=== PATIENT | male | born 1955 | race Caucasian/White ===

== ENCOUNTER 2024-08-05 18:45 | Outpatient (REF) | payer MEDICARE, SELFPAY ==
[2024-08-05 19:57] LABS: Abs Immature Grans 0.05 10^3/uL (0.0-0.06); Absolute Basophil Count 0.05 10^3/uL (0.0-0.2); Absolute Eosinophil Count 0.26 10^3/uL (0.0-0.7); Absolute Lymphocyte Count 1.74 10^3/uL (1.2-3.4); Absolute Monocyte Count 0.51 10^3/uL (0.1-0.8); Absolute Neutrophil Count 4.38 10^3/uL (1.2-6.7); Basophils % 0.7 %; Eosinophils % 3.7 %; HCT 37.2 % (40.0-50.0); Immature Grans % 0.7 %; Lymphocytes % 24.9 %; MCHC 32.3 % (32.0-36.0); MCV 93 fL (80-95); MPV 12.2 fL (8.0-11.0); Monocytes % 7.3 %; Neutrophils % 62.7 %; Platelet Count 219 10^3/uL (130-400); RDW 13.6 % (11.8-14.1); RDW-SD 46.2 fL; WBC 6.99 10^3/uL (4.4-10.8)
[2024-08-05 20:27] LABS: Iron 51 ug/dL (65-175); Total Iron Binding Capacity 339 ug/dL (250-450); Transferrin Sat 15 % (20-55)
[2024-08-05 20:41] LABS: Hemoglobin A1C 5.7 % (<5.7)
[2024-08-05 20:52] LABS: ALT 12 U/L (16-63); AST 11 U/L (15-37); Albumin 3.5 g/dL (3.4-5.0); Alkaline Phosphatase 125 U/L (46-116); Anion Gap 5.8 mmol/L (3-11); BUN 12 mg/dL (7-18); Bilirubin, Total 0.27 mg/dL (0.2-1.0); CO2 31.2 mmol/L (21.0-32.0); CREATININE 0.9 mg/dL (0.70-1.30); Calcium 8.6 mg/dL (8.5-10.1); Chloride 106 mmol/L (98-107); Estimated GFR 91.88 (mL/min/1.73m2); Ferritin 137 ng/mL (26-388); Folate 13.3 ng/mL (8.6-20.0); Glucose 91 mg/dL (74-106); Potassium 4.2 mmol/L (3.5-5.1); Sodium 143 mmol/L (136-145); TSH (W/Ref FT4) 2.96 uIU/mL (0.36-3.74); Total Protein 6.7 g/dL (6.4-8.2); Vitamin B12 485 pg/mL (193-986); Vitamin D 25 Total 28.1 ng/mL (30-100)
[2024-08-05 21:26] LABS: NT-proBNP 529 pg/mL (<300)
[2024-08-08 11:50] LABS: Misc Referral (UVM) See Comments
== END 2024-08-05 18:46 | disposition home or self-care (01) ==
LOC: LBN 18:45
PROVIDERS: Visit Provider Nurse Practitioner Gerontology
DX: D52.9 Folate deficiency anemia, unspecified (principal); E83.42 Hypomagnesemia; I50.9 Heart failure, unspecified; I11.0 Hypertensive heart disease with heart failure; I11.9 Hypertensive heart disease without heart failure; R73.09 Other abnormal glucose; G89.4 Chronic pain syndrome; D51.9 Vitamin B12 deficiency anemia, unspecified; R53.82 Chronic fatigue, unspecified
CPT/HCPCS: 80053; 82306; 80164; 82607; 82728; 82746; 83036; 83540; 83550; 83735; 83880; 84443; 85025

== ENCOUNTER 2024-09-21 16:53 | Emergency (ER) | payer MEDICARE, MEDICAID, SELFPAY ==
[2024-09-21] VITALS (8 sets, daily range): BP systolic 112–165; BP diastolic 75–95; PULSE 51–68; RESP 14–19; TEMP 36.2; O2SAT 97–100
--- NOTE | 2024-09-21 16:45 | RT.EKG_ITS ---
APPROVED REPORT Exam: Resting ECG Reason for Exam: chest pain Patient Location: E HR:62 bpm ECG Measurements Heart Rate 62 AXIS NC 208 P 53 QRSd 76 QRS 17 QT 415 T 39 QTc 421 Conclusion Sinus rhythm...normal P axis, V-rate 60- 99
[2024-09-21 17:07] LABS: Abs Immature Grans 0.01 10^3/uL (0.0-0.06); Absolute Basophil Count 0.03 10^3/uL (0.0-0.2); Absolute Eosinophil Count 0.23 10^3/uL (0.0-0.7); Absolute Lymphocyte Count 2.03 10^3/uL (1.2-3.4); Absolute Monocyte Count 0.66 10^3/uL (0.1-0.8); Absolute Neutrophil Count 2.22 10^3/uL (1.2-6.7); Basophils % 0.6 %; Eosinophils % 4.4 %; HGB 11.6 g/dL (13.5-17.5); Immature Grans % 0.2 %; Lymphocytes % 39.2 %; MCH 30.4 pg (27.0-33.0); MCHC 33.1 % (32.0-36.0); MCV 92 fL (80-95); MPV 10.7 fL (8.0-11.0); Monocytes % 12.7 %; Neutrophils % 42.9 %; Platelet Count 181 10^3/uL (130-400); RBC 3.81 10^6/uL (4.36-5.78); RDW 12.8 % (11.8-14.1); RDW-SD 43.6 fL; WBC 5.18 10^3/uL (4.4-10.8)
--- NOTE | 2024-09-21 17:15 | DI.RAD_ITS ---
Exam(s) XR PORTABLE CHEST AP EXAM: XR PORTABLE CHEST AP CLINICAL HISTORY: chest pain TECHNIQUE: 2D digital imaging was performed of the chest. One image was obtained. An AP view was ob tained. COMPARISON: No exams were available for comparison FINDINGS: MEDIASTINUM: Normal. HEART: Normal. PULMONARY VASCULATURE: Normal. LUNGS: Clear. PLEURAL SPACE: No pleural effusion or pneumothorax. BONE:Within normal limits for the patient's age. OTHER FINDINGS:Normal. IMPRESSION: No acute pulmonary findings. DATA REPOSITORY: RADIATION DOSE DELIVERED:
--- NOTE | 2024-09-21 17:20 | ED.GENADUL_ITS ---
Discharge Plan Disposition Patient Disposition: Home Condition: Stable Discharge Details Clinical Impression: Chest pain Primary Care Provider: Regine Reyes ED Provider: Sukhdev Goodman Home Meds and New Rx's Prescriptions: Continued risperidone [Risperdal] 1 mg tablet 1 mg PO BID lorazepam [Ativan] 1 mg tablet 1 mg PO DAILY cholecalciferol (vitamin D3) 125 mcg (5,000 unit) tablet 50,000 unit PO QWEEK divalproex [Depakote] 250 mg tablet,delayed release (DR/EC) 750 mg PO .Daily PM tamsulosin [Flomax] 0.4 mg capsule 0.4 mg PO DAILY metoprolol tartrate 37.5 mg tablet 37.5 mg PO DAILY ibuprofen 800 mg tablet 800 mg PO Q6H Artificial Tears([id number]) 1-0.2-0.2 % drops 2 drp ophthalmic (eye) DAILY acetaminophen 500 mg capsule 500 mg PO Q6H PRN polyethylene glycol 3350 17 gram powder in packet 17 g PO DAILY PRN Discharge Instructions Additional Instructions: Your workup today showed no evidence of cardiac chest pain. Follow-up with your primary care provider within 1 to 2 weeks If you feel more ill, have difficulty breathing or new symptoms such as persistent vomiting return to the emergency department for reevaluation HPI General Mode of arrival: EMS . Date/Time Provider Initiated Documentation: 09/21/24 16:56 . Information obtained by: patient and EMS . History of Present Illness 69 year old M presents to the emergency department with the chief complaint of chest pain, described as mild, Quality is described as aching, and is localized to the chest. Patient reports no radiation. Patient started experiencing this unknown and it has been constant. No relieving factors improve sy mptom(s), No exacerbating factors reported . Patient notes no other symptoms.. Related Data Home Medications ?Medication ?Instructions ?Recorded ?Confirmed acetaminophen 500 mg capsule 500 mg PO Q6H PRN 09/21/24 09/21/24 cholecalciferol (vitamin D3) 125 50,000 unit PO QWEEK 09/21/24 09/21/24 mcg (5,000 unit) tablet divalproex 250 mg tablet,delayed 750 mg PO .Daily PM 09/21/24 09/21/24 release (Depakote) ibuprofen 800 mg tablet 800 mg PO Q6H 09/21/24 09/21/24 lorazepam 1 mg tablet (Ativan) 1 mg PO DAILY 09/21/24 09/21/24 metoprolol tartrate 37.5 mg tablet 37.5 mg PO DAILY 09/21/24 09/21/24 peg [id number] 1 2 drp ophthalmic (eye) DAILY 09/21/24 09/21/24 %-0.2 %-0.2 % eye drops (Artificial Tears ([id number])) polyethylene glycol 3350 17 gram 17 g PO DAILY PRN 09/21/24 09/21/24 oral powder packet risperidone 1 mg tablet (Risperdal) 1 mg PO BID 09/21/24 09/21/24 tamsulosin 0.4 mg capsule (Flomax) 0.4 mg PO DAILY 09/21/24 09/21/24 Allergies Allergy/AdvReac Type Severity Reaction Status Date / Time No Known Allergies Allergy Unverified 09/21/24 17:07 General Stated Complaint: Chest Pain TORREY: 3 Review of Systems All systems reviewed & are unremarkable except as noted in HPI and below Constitutional Constitutional: Denies chills, Denies fever(s) and Denies weakness Cardiovascular Cardiovascular: Reports chest pain and Denies dyspnea Respiratory Respiratory: Denies cough and Denies dyspnea Gastrointestinal Gastrointestinal: Denies abdominal pain, Denies nausea and Denies vomiting Musculoskeletal Musculoskeletal: Denies joint swelling Neurologic Neurologic: Denies weakness Exam Const General: no acute distress Orientation: alert [facility] Head: normal to inspection Ears: external ears normal General nose exam: external nose normal Mouth: moist mucous membranes Eyes General: appearance normal, both eyes and all related structures Neck Neck: normal visual inspection Resp Effort & Inspection: normal respiratory effort and able to speak in complete sentences Auscultation: clear to auscultation bilaterally Cardio Jugular venous pressure: no JVD Rate: regular rate Skin General skin exam: no rashes or lesions noted Neuro General: patient alert Extrem General: normal to inspection Psych Mental Status: mental status grossly normal Course Vital Signs Vital signs: Vital Signs Temperature 36.2 C L 09/21/24 17:00 Pulse 60 09/21/24 17:00 Respiratory Rate 15 09/21/24 17:00 Blood Pressure 112/81 09/21/24 17:00 Pulse Oximetry 98 09/21/24 17:00 Temperature 36.2 C L 09/21/24 17:00 Temperature Source Tympanic 09/21/24 17:00 Pulse 60 09/21/24 17:00 Respiratory Rate 15 09/21/24 17:00 Respiratory Effort Normal 09/21/24 17:04 Blood Pressure 112/81 09/21/24 17:00 Blood Pressure Position Sitting 09/21/24 17:00 Pulse Oximetry 98 09/21/24 17:00 Oxygen Delivery Method Room Air 09/21/24 17:00 Oxygen Flow Rate 0 09/21/24 17:00 Lab/Test Results Lab/Test Results: Laboratory Tests Range/Units 09/21/24 17:01 WBC (4.4-10.8) 10^3/uL 5.18 RBC (4.36-5.78) 10^6/uL 3.81 L Hgb (13.5-17.5) g/dL 11.6 L Hct (40.0-50.0) % 35.0 L MCV (80-95) fL 92 MCH (27.0-33.0) pg 30.4 MCHC (32.0-36.0) % 33.1 RDW (11.8-14.1) % 12.8 Plt Count (130-400) 10^3/uL 181 MPV (8.0-11.0) fL 10.7 Immature Gran % % 0.2 Neutrophils % % 42.9 Lymphocytes % % 39.2 Monocytes % % 12.7 Eosinophils % % 4.4 Basophils % % 0.6 Nucleated RBC % (0.0-0.3) % 0.0 Absolute Neutrophils (1.2-6.7) 10^3/uL 2.22 Absolute Lymphocytes (1.2-3.4) 10^3/uL 2.03 Absolute Monocytes (0.1-0.8) 10^3/uL 0.66 Absolute Eosinophils (0.0-0.7) 10^3/uL 0.23 Absolute Basophils (0.0-0.2) 10^3/uL 0.03 Medical Decision Making 69-year-old male with a history of dementia who resides at the [facility], history of hypertension and reported history of coronary artery disease, comes in with chest pain. Is unclear when this pain started but he voiced that he was having chest pain the staff and so was referred here. He currently is alert and in no distress. He says that the pain that he had was in the anterior chest and was an aching sensation. He currently denies any pain. Denies any difficulty breathing, vomiting, diaphoresis. He is hemodynamically stable, has clear lung sounds, soft nontender abdomen, no leg swelling or calf tenderness. Given his age and history we will check troponins, CBC, CMP. Will also obtain a chest x- ray. He has equal peripheral pulses and no tearing back pain so doubt dissection and he has no tachycardia, hypoxia or evidence of DVT so doubt PE. Labs and x-ray show no acute findings. Second troponin negative and not significantly changed from first so do not feel third troponin indicated. He is sleeping on reassessment and awakens easily to voice and says he has no pain. Given reassuring workup feel he is stable for discharge and follow-up with his PCP, return precautions given. Differential Diagnosis Differential Diagnosis: NSTEMI, chest wall pain, pleurisy Lab Data Lab results reviewed: Yes I reviewed the patient's lab results. ECG Data Attestation: I personally reviewed and interpreted this ECG (s) as follows: Prior ECG tracings: not available for review Interpretation: Sinus rhythm, rate of 62, no STEMI Quality:SDOH Health Related Social Needs: No Data to Display PFSH All Active Problems (Updated 09/21/24 @ 18:37 by Sukhdev Goodman MD) Chest pain (Acute) Social History Smoking risk assessment performed?: No PAWSS Have you Been Recently Intoxicated or Drunk Within the Last 30 days?: No Have you Ever Experienced Previous Episodes of Alcohol Withdrawal?: No Have you ever Experienced Withdrawal Seizures?: No Have you ever Experienced Delirium Tremens(DT)s?: No Have you ever undergone Alcohol Rehabilitation Treatment (i.e, inpt ot outpatient treatment programs)?: No Have you ever Experienced Blackouts?: No Have you ever Combined Alcohol with other Downers within the last 90 days?: No Have you ever Combined Alcohol with any other Substance of Abuse during the last 90 days?: No Positive Blood Alcohol level on Presentation? [PCS.BAL]: No Evidence of Increased Autonomic Activity (i.e. HR>120, tremor, sweating, a gitation, nausea)?: No Result: 0
[2024-09-21 17:21] LABS: INR 1.2 (0.9-1.1); Prothrombin Time 11.7 sec (9.1-11.1)
[2024-09-21 17:30] LABS: ALT 13 U/L (16-63); AST 9 U/L (15-37); Albumin 3.3 g/dL (3.4-5.0); Alkaline Phosphatase 97 U/L (46-116); Anion Gap 7.7 mmol/L (3-11); BUN 16 mg/dL (7-18); Bilirubin, Direct 0.1 mg/dL (0.0-0.2); Bilirubin, Total 0.26 mg/dL (0.2-1.0); CO2 30.3 mmol/L (21.0-32.0); CREATININE 0.9 mg/dL (0.70-1.30); Calcium 8.8 mg/dL (8.5-10.1); Chloride 108 mmol/L (98-107); Estimated GFR 91.88 (mL/min/1.73m2); Glucose 94 mg/dL (74-106); Lipase 48 U/L (16-77); Magnesium 1.8 mg/dL (1.8-2.4); NT-proBNP 320 pg/mL (<300); Potassium 4.4 mmol/L (3.5-5.1); Sodium 146 mmol/L (136-145); Total Protein 6.8 g/dL (6.4-8.2); Troponin I 5 ng/L (<or=76)
[2024-09-21 18:29] LABS: Troponin I 5 ng/L (<or=76)
== END 2024-09-21 18:34 | disposition home or self-care (01) ==
PROVIDERS: Emergency Provider Emergency Medicine; PCP Nurse Practitioner Gerontology
DX: R07.9 Chest pain, unspecified (principal); Z86.79 Personal history of other diseases of the circulatory system
CPT/HCPCS: 80053; 83690; 93005; 99284; 71045; 82248; 83735; 83880; 84484; 85025; 85610; 85730; 93010

== ENCOUNTER 2024-10-01 20:25 | Emergency (ER) | payer MEDICARE, MEDICAID, SELFPAY ==
[2024-10-01] VITALS (16 sets, daily range): BP systolic 152–156; BP diastolic 79–107; PULSE 53–84; RESP 11–21; TEMP 36.4; O2SAT 97–100
--- NOTE | 2024-10-01 20:30 | DI.CT_ITS ---
Exam(s) CT ABDOMEN PELVIS W EXAM: CT ABDOMEN PELVIS W CLINICAL HISTORY: right sided abdominal pain. TECHNIQUE: Imaging Protocol: Axial computed tomography images with coronal and sagittal reformatted images were created and reviewed CONTRAST MATERIAL: Intravenous: Omnipaque 350 Contrast volume:98 ml Oral: no COMPARISON: CR XR PORTABLE CHEST AP from 09/21/2024 FINDINGS: ABDOMEN and PELVIS: Exam is mildly limited by motion. Lung Bases: No acute findings. Small hiatal hernia. Liver: Normal density. No suspicious mass. Gallbladder and biliary tract: No radiodense calculus. No biliary dilation. Pancreas: Normal density. No abnormal calcifications or inflammatory process. No evidence of mass. Spleen: Normal. Kidneys: Normal size, contour and axis. No radiodense stones. No obstructive uropathy. No suspicious masses seen. Adrenal glands: No masses seen. Vasculature: Abdominal aorta non-dilated. Soft tissues: Small fat containing left inguinal hernia. Tiny fat containing umbilical hernia. Bladder: Mild wall thickening. Underdistention versus cystitis. No calculi.No focal mass. Bowel: No obstruction. No bowel wall thickening. Appendix normal. Mild sigmoid diverticulosis. No evidence of diverticulitis. Peritoneal cavity: No ascites. No focal collection. No mesenteric inflammatory response. Bones: Unremarkable for age. Reproductive organs: Unremarkable. Lymph nodes: No pathologically enlarged lymph nodes. IMPRESSION:: No acute abnormality in the abdomen or pelvis. Head Question mild bladder wall thickening versus under distension. Clinical correlation recommended. RADIATION DOSE DELIVERED: Total DLP DATA REPOSITORY: All CT scans at this facility are submitted to the National Radiology Data Registry (NRDR) Dose Index Registry (DIR) with the [employer] (A[employer]). RADIATION OPTIMIZATION: All CT scans at this facility use at least one of these dose optimization te chniques: automated exposure control; mA and/or kV adjustment per patient size (includes targeted exa ms where dose is matched to clinical indication); or iterative reconstruction.
--- NOTE | 2024-10-01 20:32 | ED.GENADUL_ITS ---
Discharge Plan Disposition Patient Disposition: Care Home Facility(SNF) Condition: Stable Discharge Details Clinical Impression: Abdominal pain Primary Care Provider: Regine Reyes ED Provider: Sukhdev Goodman Home Meds and New Rx's Prescriptions: Continued risperidone [Risperdal] 1 mg tablet 1 mg PO BID lorazepam [Ativan] 1 mg tablet 1 mg PO .bed cholecalciferol (vitamin D3) 125 mcg (5,000 unit) tablet 50,000 unit PO QWEEK divalproex [Depakote] 250 mg tablet,delayed release (DR/EC) 750 mg PO .Daily PM tamsulosin [Flomax] 0.4 mg capsule 0.4 mg PO DAILY metoprolol tartrate 37.5 mg tablet 37.5 mg PO BID ibuprofen 800 mg tablet 800 mg PO PRN Artificial Tears([id number]) 1-0.2-0.2 % drops 2 drp ophthalmic (eye) PRN acetaminophen 500 mg capsule 500 mg PO Q6H PRN polyethylene glycol 3350 17 gram powder in packet 17 g PO DAILY PRN pantoprazole 40 mg tablet,delayed release (DR/EC) 40 mg PO QAM losartan 25 mg tablet 25 mg PO DAILY thiamine HCl (vitamin B1) 100 mg tablet 100 mg PO DAILY Patient Comments: TAKE ONE TABLET BY MOUTH THREE TIMES A DAY Discharge Instructions Additional Instructions: Your blood work and CAT scan did not show any concerning findings at this time Follow-up with your primary care provider if symptoms continue this week If you feel more ill, have new symptoms such as high fevers or persistent vomiting return to the emergency department for reevaluation HPI General Mode of arrival: EMS . Date/Time Provider Initiated Documentation: 10/01/24 20:27 . Information obtained by: patient and EMS . History of Present Illness 69 year old M presents to the emergency department with the chief complaint of right sided abdominal pain, Quality is described as aching, and is localized to the abdomen. Patient reports no radiation. Patient started experiencing this unknown and it has been constant. No relieving factors improve symptom(s), No exacerbating factors reported . Patient notes no other symptoms.; denies fever/chills and nausea/vomiting. Patient did receive the following treatments prior to arrival, none Related Data Home Medications ?Medication ?Instructions ?Recorded ?Confirmed acetaminophen 500 mg capsule 500 mg PO Q6H PRN 09/21/24 10/01/24 cholecalciferol (vitamin D3) 125 50,000 unit PO QWEEK 09/21/24 10/01/24 mcg (5,000 unit) tablet divalproex 250 mg tablet,delayed 750 mg PO .Daily PM 09/21/24 10/01/24 release (Depakote) ibuprofen 800 mg tablet 800 mg PO PRN 09/21/24 10/01/24 lorazepam 1 mg tablet (Ativan) 1 mg PO .bed 09/21/24 10/01/24 metoprolol tartrate 37.5 mg tablet 37.5 mg PO BID 09/21/24 10/01/24 peg [id number] 1 2 drp ophthalmic (eye) PRN 09/21/24 10/01/24 %-0.2 %-0.2 % eye drops (Artificial Tears ([id number])) polyethylene glycol 3350 17 gram 17 g PO DAILY PRN 09/21/24 10/01/24 oral powder packet risperidone 1 mg tablet (Risperdal) 1 mg PO BID 09/21/24 10/01/24 tamsulosin 0.4 mg capsule (Flomax) 0.4 mg PO DAILY 09/21/24 10/01/24 losartan 25 mg tablet 25 mg PO DAILY 10/01/24 10/01/24 pantoprazole 40 mg tablet,delayed 40 mg PO QAM 10/01/24 10/01/24 release thiamine HCl (vitamin B1) 100 mg 100 mg PO DAILY 10/01/24 10/01/24 tablet Allergies Allergy/AdvReac Type Severity Reaction Status Date / Time No Known Allergies Allergy Verified 10/01/24 20:41 General TORREY: 3 Review of Systems All systems reviewed & are unremarkable except as noted in HPI and below Constitutional Constitutional: Denies chills and Denies fever(s) Cardiovascular Cardiovascular: Denies chest pain and Denies dyspnea Respiratory Respiratory: Denies cough and Denies dyspnea Gastrointestinal Gastrointestinal: Reports abdominal pain and Denies vomiting Integumentary/Breasts Skin/Breast: Denies rash Exam Const General: no acute distress Orientation: alert [facility] Head: normal to inspection Ears: external ears normal General nose exam: external nose normal Mouth: moist mucous membranes Eyes General: appearance normal, both eyes and all related structures Neck Neck: normal visual inspection Resp Effort & Inspection: normal respiratory effort and able to speak in complete sentences Cardio Rate: regular rate GI Palpation: soft and tender Skin General skin exam: no rashes or lesions noted Neuro General: patient alert Extrem General: normal to inspection Psych Mental Status: mental status grossly normal Medical Decision Making 6-year-old male who has a history of dementia and resides at the [facility] comes in with right-sided abdominal pain with unknown time he started having this pain. No vomiting, no fevers, no urinary or bowel symptoms. He localizes the pain to the right upper and right lower quadrant. His abdomen is soft, he has tenderness in both right upper and right lower quadrants without guarding. Given the location of the pain and his age we will proceed with CBC CMP lipase UA and CT abdomen pelvis to further evaluate. Labs unremarkable, UA pending, CT negative for acute findings other than either nondistended bladder versus possible cystitis. UA just collected, even if this is positive likely plan for [place] [facility] Urinalysis unremarkable. Patient stable and stable on reassessment. Awakens easily to voice no longer having pain. Given reassuring workup feel he can be discharged to follow-up with his PCP, return precautions given Differential Diagnosis Differential Diagnosis: Appendicitis, cholecystitis, pancreatitis Imaging Data Radiologic Study: Attestation: I personally reviewed and interpreted this imaging study as follows: Imaging: CT Scan Radiologist's impression: IMPRESSION: Diffuse wall thickening of the urinary bladder may be secondary to incomplete distension versus cystitis, correlate clinically. Lab Data Lab results reviewed: Yes I reviewed the patient's lab results. Quality:SDOH Health Related Social Needs: No Data to Display PFSH All Active Problems (Updated 10/01/24 @ 21:35 by Sukhdev Goodman MD) Abdominal pain (Acute) Chest pain (Acute) Social History Smoking/Tobacco Use Status: Never Smoking risk assessment performed?: Yes Alcohol Intake: former Drug use: Never Housing: alf Do you feel safe at home: Yes Do you feel safe in your relationship?: Yes
[2024-10-01 21:03] LABS: Abs Immature Grans 0.01 10^3/uL (0.0-0.06); Absolute Basophil Count 0.03 10^3/uL (0.0-0.2); Absolute Eosinophil Count 0.28 10^3/uL (0.0-0.7); Absolute Lymphocyte Count 1.98 10^3/uL (1.2-3.4); Absolute Monocyte Count 0.69 10^3/uL (0.1-0.8); Absolute Neutrophil Count 2.58 10^3/uL (1.2-6.7); Basophils % 0.5 %; HCT 37.7 % (40.0-50.0); HGB 12.3 g/dL (13.5-17.5); Immature Grans % 0.2 %; Lymphocytes % 35.5 %; MCH 30.4 pg (27.0-33.0); MCHC 32.6 % (32.0-36.0); MCV 93 fL (80-95); Monocytes % 12.4 %; Neutrophils % 46.4 %; Platelet Count 163 10^3/uL (130-400); RBC 4.04 10^6/uL (4.36-5.78); RDW 12.8 % (11.8-14.1); RDW-SD 43.7 fL; WBC 5.57 10^3/uL (4.4-10.8)
[2024-10-01] MEDS: Omnipaque 350 MG/ML 100 ML BTL IJ (21:15)
[2024-10-01] MEDS: Normal Saline - Diluent 50 ML VIAL IJ (21:16)
[2024-10-01 21:19] LABS: ALT 13 U/L (16-63); AST 12 U/L (15-37); Albumin 3.7 g/dL (3.4-5.0); Alkaline Phosphatase 88 U/L (46-116); Anion Gap 7.6 mmol/L (3-11); BUN 18 mg/dL (7-18); Bilirubin, Direct 0.1 mg/dL (0.0-0.2); Bilirubin, Total 0.41 mg/dL (0.2-1.0); CO2 29.4 mmol/L (21.0-32.0); CREATININE 0.9 mg/dL (0.70-1.30); Calcium 8.7 mg/dL (8.5-10.1); Chloride 105 mmol/L (98-107); Estimated GFR 91.88 (mL/min/1.73m2); Glucose 87 mg/dL (74-106); Lipase 42 U/L (16-77); Magnesium 1.8 mg/dL (1.8-2.4); Potassium 3.9 mmol/L (3.5-5.1); Sodium 142 mmol/L (136-145); Total Protein 7.3 g/dL (6.4-8.2)
--- NOTE | 2024-10-01 21:37 | DI.VRAD_ITS ---
PROCEDURE INFORMATION: Exam: CT Abdomen And Pelvis With Contrast Exam date and time: 10/01/2024 9:08 PM Age: 69 years old Clinical indication: Abdominal pain; Localized; Right; Patient HX: R sided abd pain TECHNIQUE: Imaging protocol: Computed tomography of the abdomen and pelvis with contrast. Radiation optimization: All CT scans at this facility use at least one of these dose optimization techniques: automated exposure control; mA and/or kV adjustment per patient size (includes targeted exams where dose is matched to clinical indication); or iterative reconstruction. Contrast material: OMNIPAQUE 350; Contrast volume: 100 ml; Contrast route: INTRAVENOUS (IV); COMPARISON: CR XR PORTABLE CHEST AP 09/21/2024 5:55 PM FINDINGS: Lungs: Linear bibasilar opacities most consistent with subsegmental atelectasis. Diaphragm: Moderate-sized hiatal hernia. Liver: The liver is unremarkable. Gallbladder and biliary ducts: No gallstones. Nondistended. No wall thickening. Pancreas: The pancreas is unremarkable. Spleen: No splenomegaly. No lesions. Adrenal glands: The adrenal glands are unremarkable. Kidneys and ureters: The kidneys are normal. Stomach and bowel: Colonic diverticulosis without evidence of diverticulitis. Appendix: Appendix is not seen but there is no pericecal inflammatory change. Intraperitoneal space: Unremarkable. No free air. No significant fluid collection. Vasculature: There is mild diffuse atherosclerotic disease of the abdominal aorta. Lymph nodes: Unremarkable. No enlarged lymph nodes. Urinary bladder: Diffuse wall thickening of the urinary bladder may be secondary to incomplete distension versus cystitis, correlate clinically. Reproductive: The prostate is enlarged. Bones/joints: No acute osseous abnormality. Soft tissues: Small fat containing umbilical hernia. Bilateral fat containing inguinal hernias. Soft tissues are unremarkable as visualized. IMPRESSION: Diffuse wall thickening of the urinary bladder may be secondary to incomplete distension versus cystitis, correlate clinically. Dictated and Authenticated by: Anamaria Santana MD. Ordering:JIL Santizo MD
[2024-10-01 21:46] LABS: Bilirubin Negative (Negative); Blood Negative (Negative); Clarity Clear (Clear); Glucose Negative (Negative); Ketones Negative (Negative); Leukocyte Esterase Negative (Negative); Nitrite Negative (Negative); Urobilinogen 0.2 mg/dL (Up to 0.2)
== END 2024-10-01 22:52 | disposition skilled nursing facility (03) ==
PROVIDERS: Emergency Provider Emergency Medicine; PCP Nurse Practitioner Gerontology
DX: R10.31 Right lower quadrant pain (principal); R10.11 Right upper quadrant pain; K70.30 Alcoholic cirrhosis of liver without ascites; F03.90 Unspecified dementia, unspecified severity, without behavioral disturbance, psychotic disturbance, mood disturbance, and anxiety; Z79.899 Other long term (current) drug therapy
CPT/HCPCS: 36415; 80053; 83690; 99285; 74177; 81003; 82248; 83735; 85025; 99284; J3490

== ENCOUNTER 2025-02-24 17:49 | Outpatient (REF) | payer MEDICARE, MEDICAID, SELFPAY ==
[2025-02-24 17:59] LABS: Abs Immature Grans 0.01 10^3/uL (0.0-0.06); Absolute Basophil Count 0.02 10^3/uL (0.0-0.2); Absolute Eosinophil Count 0.16 10^3/uL (0.0-0.7); Absolute Lymphocyte Count 1.57 10^3/uL (1.2-3.4); Absolute Monocyte Count 0.73 10^3/uL (0.1-0.8); Absolute Neutrophil Count 2.05 10^3/uL (1.2-6.7); Basophils % 0.4 %; Eosinophils % 3.5 %; HCT 37.2 % (40.0-50.0); HGB 11.9 g/dL (13.5-17.5); Immature Grans % 0.2 %; Lymphocytes % 34.6 %; MCH 30.3 pg (27.0-33.0); MCV 95 fL (80-95); MPV 11.7 fL (8.0-11.0); Monocytes % 16.1 %; Neutrophils % 45.2 %; Platelet Count 142 10^3/uL (130-400); RBC 3.93 10^6/uL (4.36-5.78); RDW 13.2 % (11.8-14.1); RDW-SD 45.9 fL; WBC 4.54 10^3/uL (4.4-10.8)
[2025-02-24 18:10] LABS: ALT 17 U/L (16-63); AST 13 U/L (15-37); Alkaline Phosphatase 56 U/L (46-116); Anion Gap 8.1 mmol/L (3-11); BUN 17 mg/dL (7-18); Bilirubin, Total 0.5 mg/dL (0.2-1.0); CO2 27.9 mmol/L (21.0-32.0); CREATININE 0.8 mg/dL (0.70-1.30); Calcium 8.8 mg/dL (8.5-10.1); Chloride 108 mmol/L (98-107); Estimated GFR 95.21 (mL/min/1.73m2); Glucose 76 mg/dL (74-106); Magnesium 1.8 mg/dL (1.8-2.4); Potassium 4.4 mmol/L (3.5-5.1); Sodium 144 mmol/L (136-145); Total Protein 5.8 g/dL (6.4-8.2)
[2025-02-25 18:54] LABS: PSA, Screening 0.2 ng/mL (<=6.5)
== END 2025-02-24 17:50 | disposition home or self-care (01) ==
LOC: LBN 17:49
PROVIDERS: PCP Nurse Practitioner Gerontology; Visit Provider Nurse Practitioner Gerontology
DX: E83.42 Hypomagnesemia (principal); E78.5 Hyperlipidemia, unspecified; R79.9 Abnormal finding of blood chemistry, unspecified
CPT/HCPCS: 80053; 84153; 80164; 83735; 85025

== ENCOUNTER 2025-03-03 03:22 | Emergency (ER) | payer MEDICARE, MEDICAID, SELFPAY ==
[2025-03-03] VITALS (9 sets, daily range): BP systolic 149–164; BP diastolic 91–99; PULSE 56–68; RESP 10–19; TEMP 37.1; O2SAT 94–97
--- NOTE | 2025-03-03 03:15 | RT.EKG_ITS ---
APPROVED REPORT Exam: Resting ECG Reason for Exam: chest pain Patient Location: E HR:60 bpm ECG Measurements Heart Rate 60 AXIS KS 187 P 57 QRSd 77 QRS 22 QT 400 T 45 QTc 402 Conclusion Sinus rhythm...normal P axis, V-rate 60- 99 Physician: no stemi
--- NOTE | 2025-03-03 03:30 | DI.RAD_ITS ---
Exam(s) XR PORTABLE CHEST AP EXAM: XR PORTABLE CHEST AP CLINICAL HISTORY: chest pain TECHNIQUE: 2D digital imaging was performed of the chest. One image was obtained. An AP view was ob tained. COMPARISON: CR XR PORTABLE CHEST AP from 09/21/[address] ABDOMEN PELVIS W from 10/01/2024 FINDINGS: MEDIASTINUM: Normal. HEART: Normal. PULMONARY VASCULATURE: Normal. LUNGS: Clear. PLEURAL SPACE: No pleural effusion or pneumothorax. BONE:Within normal limits for the patient's age. There is a question of an acute mildly displaced fra cture involving the lateral aspect of the left 8th rib. The prior CT scan from 10/01/2024 shows old healed rib fractures. OTHER FINDINGS:Normal. IMPRESSION: 1. No acute pulmonary findings. 2. Question of acute mildly displaced fracture involving the lateral aspect of the left 8th rib. Ple ase correlate clinically. 3. Findings were discussed with Dr. Jennings at 8:12 a.m. on 03/03/2025. 4. The preliminary V Rad report was reviewed. DATA REPOSITORY: RADIATION DOSE DELIVERED:
--- NOTE | 2025-03-03 03:32 | ED.GENADUL_ITS ---
Discharge Plan Disposition Patient Disposition: Halfway Facility(SNF) Condition: Good Discharge Details Chief Complaint: Abd Prob Clinical Impression: Encounter for medical assessment Primary Care Provider: Regine Reyes ED Provider: Siva Gan Home Meds and New Rx's Prescriptions: No Action benztropine 1 mg tablet 1 mg PO DAILY multivitamin with folic acid [Daily-Messi (with folic acid)] 400 mcg tablet 1 tab PO DAILY risperidone [Risperdal] 1 mg tablet 1 mg PO BID lorazepam [Ativan] 1 mg tablet 1 mg PO .bed cholecalciferol (vitamin D3) 125 mcg (5,000 unit) tablet 50,000 unit PO QWEEK divalproex [Depakote] 250 mg tablet,delayed release (DR/EC) 750 mg PO .Daily PM tamsulosin [Flomax] 0.4 mg capsule 0.4 mg PO DAILY metoprolol tartrate 37.5 mg tablet 37.5 mg PO BID ibuprofen 800 mg tablet 800 mg PO PRN Artificial Tears([id number]) 1-0.2-0.2 % drops 2 drp ophthalmic (eye) PRN acetaminophen 500 mg capsule 500 mg PO Q6H PRN polyethylene glycol 3350 17 gram powder in packet 17 g PO DAILY PRN pantoprazole 40 mg tablet,delayed release (DR/EC) 40 mg PO QAM losartan 25 mg tablet 25 mg PO DAILY thiamine HCl (vitamin B1) 100 mg tablet 100 mg PO DAILY Patient Comments: TAKE ONE TABLET BY MOUTH THREE TIMES A DAY Discharge Instructions Additional Instructions: At this time your workup shows no signs of heart attack, pneumonia, popped lung, significant infection, electrolyte abnormality or kidney dysfunction. If you notice any worsening of your symptoms, or any new symptoms such as vomiting, diarrhea, fever, chills, shortness of breath, chest pain, numbness, weakness, or fainting , please return immediately to the emergency department for reevaluation. Please follow up with your primary care provider as soon as ravi canseco for reassessment and reevaluation. As always, it was a pleasure participating in your medical care today. Referrals: Regine Reyes, EXPLOSIVE EXPERT [Primary Care Provider] - HPI General Date/Time Provider Initiated Documentation: 03/03/25 03:29 . HPI Narrative: This is a 70-year-old male who resides at the [facility] who comes with no paperwork whatsoever from the [facility] this evening via EMS for evaluation of chest pain. Past medical history is only found from the [facility]. Review of history reveals that he has fairly severe dementia, chronic alcoholism in the past, atrial fibrillation on apixaban and metoprolol, and hypertension. CODE STATUS unknown. Patient is not able to add anything to the history. Per EMS the [facility] stated that the patient developed some chest pain at around 2:30 AM, and was given Zofran and Tums which did not resolve his symptoms. No other history. Patient has no other complaints. Related Data Home Medications ?Medication ?Instructions ?Recorded ?Confirmed acetaminophen 500 mg capsule 500 mg PO Q6H PRN 09/21/24 03/03/25 cholecalciferol (vitamin D3) 125 50,000 unit PO QWEEK 09/21/24 10/01/24 mcg (5,000 unit) tablet divalproex 250 mg tablet,delayed 750 mg PO .Daily PM 09/21/24 03/03/25 release (Depakote) ibuprofen 800 mg tablet 800 mg PO PRN 09/21/24 10/01/24 lorazepam 1 mg tablet (Ativan) 1 mg PO .bed 09/21/24 03/03/25 metoprolol tartrate 37.5 mg tablet 37.5 mg PO BID 09/21/24 03/03/25 peg [id number] 1 2 drp ophthalmic (eye) PRN 09/21/24 10/01/24 %-0.2 %-0.2 % eye drops (Artificial Tears ([id number])) polyethylene glycol 3350 17 gram 17 g PO DAILY PRN 09/21/24 03/03/25 oral powder packet risperidone 1 mg tablet (Risperdal) 1 mg PO BID 09/21/24 03/03/25 tamsulosin 0.4 mg capsule (Flomax) 0.4 mg PO DAILY 09/21/24 03/03/25 losartan 25 mg tablet 25 mg PO DAILY 10/01/24 03/03/25 pantoprazole 40 mg tablet,delayed 40 mg PO QAM 10/01/24 03/03/25 release thiamine HCl (vitamin B1) 100 mg 100 mg PO DAILY 10/01/24 03/03/25 tablet benztropine 1 mg tablet 1 mg PO DAILY 02/26/25 03/03/25 multivitamin with folic acid 400 1 tab PO DAILY 02/26/25 mcg tablet (Daily-Messi (with folic acid)) Allergies Allergy/AdvReac Type Severity Reaction Status Date / Time No Known Allergies Allergy Verified 03/03/25 03:38 General Stated Complaint: Abd Prob TORREY: 3 Exam Narrative Exam Narrative: 1.Const: Well-nourished, Well-developed, appearing stated age 2.Eyes: PERRL, no conjunctival injection, and symmetrical lids. 3.ENT: Atraumatic external nose and ears. Moist MM. Neck: Symmetric, trachea midline, No thyromegaly. 4.CVS: +S1/S2, Peripheral pulses 2+ and equal in all extremities. Brisk capillary refill in all extremities. 5.RESP: Unlabored respiratory effort. Clear to auscultation bilaterally. No wheezes rales or rhonchi 6.GI: Soft, Nontender/Nondistended, No hepatosplenomegaly. No guarding or rebound. 7.MSK: Normocephalic/Atraumatic, Extremities w/o deformity or ttp No cyanosis or clubbing, Normal movement of all extremities 8.Skin: Warm, Dry. No rashes or lesions. 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 Sensation grossly intact, no focal neurologic deficits. 10.Psych: (AAO) x 0, pleasant but confused. Course Vital Signs Vital signs: Vital Signs Temperature 37.1 C 03/03/25 03:24 Pulse 64 03/03/25 03:24 Respiratory Rate 18 03/03/25 03:24 Blood Pressure 164/99 H 03/03/25 03:24 Pulse Oximetry 96 03/03/25 03:24 Temperature 37.1 C 03/03/25 03:24 Temperature Source Oral 03/03/25 03:24 Pulse 64 03/03/25 03:24 Respiratory Rate 18 03/03/25 03:24 Blood Pressure 164/99 H 03/03/25 03:24 Pulse Oximetry 96 03/03/25 03:24 Pain Level 8 03/03/25 03:24 Medical Decision Making This is a 70-year-old male who resides at the [facility] who comes with no paperwork whatsoever from the [facility] this evening via EMS for evaluation of chest pain. Past medical history is only found from the [facility]. Review of history reveals that he has fairly severe dementia, chronic alcoholism in the past, atrial fibrillation on apixaban and metoprolol, and hypertension. CODE STATUS unknown. Patient is not able to add anything to the history. Per EMS the [facility] stated that the patient developed some chest pain at around 2:30 AM, and was given Zofran and Tums which did not resolve his symptoms. No other history. Patient has no other complaints. Exam demonstrates a pleasant but confused male. No fever or tachycardia to suggest infection. No writhing or evidence of severe pain on exam. Pulses are equal, lung sounds clear, heart rate normal. Uncertain as to the etiology of the chest pain, however for that matter the patient does not verbalize to us that he has any chest pain of significance. Will evaluate for life-threatening etiologies. Will get an EKG, troponins, and chest x-ray. Pulses are symmetric, and the patient does not show severe distress to suggest dissection. No hypoxemia or tachycardia to suggest PE. Will monitor closely and reassess. 4:29 AM Laboratory workup shows no white count bandemia or left shift. EKG normal, troponin normal, chest x-ray negative for acute process. Patient shows no vital sign abnormality. Symptoms inconsistent with dissection, PE, pneumothorax, rib fracture or other life-threatening etiology. Patient stable for discharge with no evidence of acute emergent etiology. I have extensively reviewed the treatment plan and discharge instructions with the patient. I have addressed all patient concerns at this time. The patient was made aware of what symptoms to monitor for that would warrant a return to the emergency department. Discussed the plan with the patient, they demonstrate verbal understanding and agreement with our assessment and plan at this time. The documentation in this chart was dictated using [employer] dictation software. Please excuse any dictation errors. FINDINGS: Lungs: Unremarkable. No consolidation. Pleural spaces: Unremarkable. No pleural effusion. No pneumothorax. Heart/Mediastinum: Unremarkable. No cardiomegaly. Bones/joints: Unremarkable. IMPRESSION: No acute findings. Thank you for allowing us to participate in the care of your patient. Dictated and Authenticated by: Abdoul Krishnamurthy MD 03/03/2025 4:05 AM Eastern Time ([place] & [place]) Quality:SDOH Health Related Social Needs: No Data to Display PFSH All Active Problems (Updated 03/03/25 @ 04:33 by Siva Gan DO) Encounter for medical assessment (Acute) Hypertensive heart disease without heart failure (Acute) Pain, unspecified (Acute) Constipation in male (Acute) Benign prostatic hyperplasia with lower urinary tract symptoms (Acute) GERD (gastroesophageal reflux disease) (Chronic) Umbilical hernia (Acute) Right upper quadrant pain (Acute) Medical History (Updated 03/03/25 @ 04:33 by Siva Gan DO) Paroxysmal atrial fibrillation Chronic cough Wernicke's encephalopathy Alcoholic cirrhosis of liver without ascites History of ETOH abuse Social History Smoking/Tobacco Use Status: Never Smoking risk assessment performed?: Yes Alcohol Intake: former Drug use: Never Housing: shelter Do you feel safe at home: Yes Do you feel safe in your relationship?: Yes
[2025-03-03 03:47] LABS: Abs Immature Grans 0.04 10^3/uL (0.0-0.06); Absolute Basophil Count 0.02 10^3/uL (0.0-0.2); Absolute Lymphocyte Count 1.88 10^3/uL (1.2-3.4); Absolute Monocyte Count 0.67 10^3/uL (0.1-0.8); Absolute Neutrophil Count 2.76 10^3/uL (1.2-6.7); Basophils % 0.4 %; Eosinophils % 3.6 %; HCT 39.8 % (40.0-50.0); Immature Grans % 0.7 %; Lymphocytes % 33.8 %; MCH 30.2 pg (27.0-33.0); MCHC 32.7 % (32.0-36.0); MCV 92 fL (80-95); MPV 10.7 fL (8.0-11.0); Neutrophils % 49.5 %; Platelet Count 178 10^3/uL (130-400); RBC 4.31 10^6/uL (4.36-5.78); RDW 12.8 % (11.8-14.1); RDW-SD 43.8 fL; WBC 5.57 10^3/uL (4.4-10.8)
--- NOTE | 2025-03-03 04:06 | DI.VRAD_ITS ---
PROCEDURE INFORMATION: Exam: XR Chest Exam date and time: 03/03/2025 3:58 AM Age: 70 years old Clinical indication: Other: Chest pian; Chest pain TECHNIQUE: Imaging protocol: Radiologic exam of the chest. Views: 1 view. COMPARISON: CR XR PORTABLE CHEST AP 09/21/2024 5:55 PM FINDINGS: Lungs: Unremarkable. No consolidation. Pleural spaces: Unremarkable. No pleural effusion. No pneumothorax. Heart/Mediastinum: Unremarkable. No cardiomegaly. Bones/joints: Unremarkable. IMPRESSION: No acute findings. Dictated and Authenticated by: Abdoul Krishnamurthy MD. Orderin Elvia Paniagua MD
[2025-03-03 04:07] LABS: ALT 13 U/L (16-63); AST 12 U/L (15-37); Albumin 3.3 g/dL (3.4-5.0); Alkaline Phosphatase 86 U/L (46-116); Anion Gap 5.7 mmol/L (3-11); BUN 13 mg/dL (7-18); Bilirubin, Total 0.5 mg/dL (0.2-1.0); CO2 29.3 mmol/L (21.0-32.0); CREATININE 0.9 mg/dL (0.70-1.30); Chloride 107 mmol/L (98-107); Estimated GFR 91.31 (mL/min/1.73m2); Glucose 93 mg/dL (74-106); Potassium 3.9 mmol/L (3.5-5.1); Sodium 142 mmol/L (136-145); Total Protein 6.7 g/dL (6.4-8.2); Troponin I 4 ng/L (<or=76)
--- NOTE | 2025-03-03 08:14 | ED.FU.B_ITS ---
Date of service: 03/03/25 Time of Service: 08:14 Follow Up Plan: Received a call from Dr. Morris in radiology regarding the chest x-ray for this patient that was performed overnight. Preliminary [facility]'s read was negative for acute processes, Dr. Morris questions a mildly displaced acute left eighth rib fracture in the lateral location. Patient does have old rib fractures identified on the CT scan performed at an earlier visit. No evidence of pneumothorax, pulmonary contusion or other severe abnormality. I reached out to the nursing staff at the [facility], and made them aware of this finding. I did recommend conservative management with Tylenol, ibuprofen, and Lidoderm patches, and to be watchful for any development of shortness of breath, worsening chest pain, or other concerning symptoms regarding this finding. Yary Connolly MD
== END 2025-03-03 04:58 | disposition skilled nursing facility (03) ==
PROVIDERS: Emergency Provider Student in an Organized Health Care Education/Training Program; PCP Nurse Practitioner Gerontology
DX: S22.32XA Fracture of one rib, left side, initial encounter for closed fracture (principal); X58.XXXA Exposure to other specified factors, initial encounter; R52 Pain, unspecified; F03.C0 Unspecified dementia, severe, without behavioral disturbance, psychotic disturbance, mood disturbance, and anxiety
CPT/HCPCS: 99283; 99284; 36415; 80053; 93005; 71045; 84484; 85025; 93010

== ENCOUNTER → 2025-03-04 13:26 | Outpatient (BNVA) | payer MEDICARE, MEDICAID, SELFPAY | PROVIDERS: PCP Nurse Practitioner Gerontology; Referring Provider Nurse Practitioner Gerontology; Visit Provider Surgery | DX: R10.11 Right upper quadrant pain (principal) | CPT/HCPCS: 99214 ==

== ENCOUNTER 2025-03-20 00:35 | Outpatient (CLI) | payer MEDICARE, MEDICAID, SELFPAY ==
--- NOTE | 2025-03-20 06:30 | DI.US_ITS ---
Exam(s) US ABDOMEN LIMITED EXAM: US ABDOMEN LIMITED CLINICAL HISTORY: RUQ pain,r10.11 TECHNIQUE: Ultrasound abdomen performed using standard protocol. COMPARISON: CT CT ABDOMEN PELVIS W from 10/01/2024 FINDINGS: There is no ascites evident. LIVER: There are no hepatic lesions evident nor dilatation of intrahepatic ducts. GALLBLADDER/BILIARY: There are no gallstones. No gallbladder wall edema nor pericholecystic fluid. The common hepatic duct isnot dilated, measuring 3mm at the level of chriss hepatis. PANCREAS: There is no evidence of pancreatic mass nor dilatation of the pancreatic duct. RIGHT KIDNEY:No evidence of solid mass, calculus, nor hydronephrosis. No cortical cysts evident. IMPRESSION: 1. No evidence of cholelithiasis nor dilatation of the biliary tree. 2. No other significant ultrasound findings in the right upper quadrant. 3. There is no ascites. DATA REPOSITORY:
== END 2025-03-20 00:55 ==
LOC: DI 00:36
PROVIDERS: PCP Nurse Practitioner Gerontology; Visit Provider Surgery
DX: R10.11 Right upper quadrant pain (principal)
CPT/HCPCS: 76705

== ENCOUNTER 2025-05-18 11:04 | Emergency (ER) | payer MEDICARE, MEDICAID, SELFPAY ==
[2025-05-18] VITALS (28 sets, daily range): BP systolic 100–145; BP diastolic 58–82; PULSE 66–99; RESP 13–43; TEMP 36.7; O2SAT 96–100
--- NOTE | 2025-05-18 10:45 | RT.EKG_ITS ---
APPROVED REPORT Exam: Resting ECG Reason for Exam: Chest Pain Patient Location: E HR:68 bpm ECG Measurements Heart Rate 68 AXIS OR 184 P 77 QRSd 82 QRS 9 QT 398 T 39 QTc 423 Conclusion Sinus rhythm, rate 68 No interval abnormalities No STEMI No significant changes from priors
--- NOTE | 2025-05-18 11:00 | DI.RAD_ITS ---
Exam(s) XR CHEST 2V PA LATERAL EXAM: XR CHEST 2V PA LATERAL CLINICAL HISTORY: Chest pain. TECHNIQUE: 2D digital imaging was performed. COMPARISON: CR,XR XR PORTABLE CHEST AP from 03/03/2025 FINDINGS: 2 views: Heart size is normal. The mediastinum is not widened. Right lung is clear. Small nodular density over the lower left lung field is probably the breast nipple. There is a fracture of the left 8th rib again noted, mildly displaced and without callus formation. There appears to be healed left 9th rib fracture. IMPRESSION: No acute pulmonary findings.Small nodular density over the lower left lung field is probably left breast nipple. Consider repeating the frontal chest x-ray with bilateral metallic nipple markers in place. Non healed mildly displaced fracture of the left 8th rib noted, as was also evident on chest x-ray of 03/03/2025. DATA REPOSITORY: RADIATION DOSE DELIVERED:
--- NOTE | 2025-05-18 11:12 | W.ED.GENAD ---
Discharge Plan Disposition Patient Disposition: Home Condition: Stable Discharge Details Clinical Impression: Shakiness, Chest pain of unknown etiology Primary Care Provider: Bailey Reyes ED Provider: Yary Connolly Home Meds and New Rx's Prescriptions: No Action benztropine 1 mg tablet 1 mg PO DAILY multivitamin with folic acid [Daily-Messi (with folic acid)] 400 mcg tablet 1 tab PO DAILY risperidone [Risperdal] 1 mg tablet 1 mg PO BID lorazepam [Ativan] 1 mg tablet 1 mg PO .bed cholecalciferol (vitamin D3) 125 mcg (5,000 unit) tablet 50,000 unit PO QWEEK divalproex [Depakote] 250 mg tablet,delayed release (DR/EC) 250 mg PO 1600 Rx Instructions: takes w/500mg tab for a total dose of 750mg Q1600 tamsulosin [Flomax] 0.4 mg capsule 0.4 mg PO HS metoprolol tartrate 37.5 mg tablet 37.5 mg PO BID ibuprofen 800 mg tablet 800 mg PO PRN Artificial Tears(he-khgm-gici) 1-0.2-0.2 % drops 2 drp ophthalmic (eye) PRN acetaminophen 500 mg capsule 500 mg PO Q6H PRN polyethylene glycol 3350 17 gram powder in packet 17 g PO DAILY PRN pantoprazole 40 mg tablet,delayed release (DR/EC) 40 mg PO QAM losartan 25 mg tablet 25 mg PO DAILY thiamine HCl (vitamin B1) 100 mg tablet 100 mg PO DAILY lorazepam 0.5 mg tablet 0.5 mg PO 1600 divalproex 500 mg tablet,delayed release (DR/EC) 500 mg PO BID Discharge Instructions Instructions: Chest Pain, Adult ED Additional Instructions: You were seen in the emergency department today for evaluation of shakiness and chest pain as well as an episode of low blood pressure at your care facility. In our department you had a full physical examination performed, had an EKG that was reassuring, and had laboratory studies that did not show any sign of damage to your heart, changes in your electrolytes, or other abnormalities that could help explain your symptoms. You had a CT scan of your brain that did not show any abnormalities to account for the shakiness, and you had a chest x-ray that was normal. Unfortunately, it is unclear what exactly caused your symptoms today. Your blood pressure has returned to normal and you received IV fluids to rehydrate you. At this time, I recommend that you continue all home medications as prescribed, and contact your primary care provider tomorrow to schedule a follow-up visit. Your chest pain has improved, but if you have a recurrence of your chest pain, change in mental status, shortness of breath, or any other symptoms that cause you concern you should return to the emergency department for reevaluation. Thank you for allowing us to be part of your care. Discharge Data Discharge Date/Time-TO BE ENTERED AT DEPARTURE: 05/18/25 14:03 HPI General Mode of arrival: EMS. Date/Time Provider Initiated Documentation: 05/18/25 11:11. Limitations to Documentation: physical limitation (History of altered mental status, does not speak frequently, reported at baseline per staff/EMS). Information obtained by: patient, EMS and old records reviewed. HPI Narrative: This is a 70-year-old male patient with a past medical history significant for paroxysmal atrial fibrillation, not on anticoagulation, history of Warnicke's encephalopathy secondary to alcohol use disorder, history of alcoholic cirrhosis, presenting for evaluation of chest pain and hypotension. The patient resides at the [facility], and was pointing at his chest this morning complaining of discomfort. Per staff, he started becoming agitated, yelling I am going to have a seizure though the patient has no seizure history and they were with him at all times and did not note any seizure activity or lapse in consciousness. They did notice him to have a slightly low blood pressure in the 80s systolic, EMS was summoned and found him to have returned to normotensive at this time. He had a nonischemic EKG and was transported to our facility without incident. The patient is largely nonverbal, but when asked specifically if he is still having chest pain he nods, and points to the center of his chest. Related Data Home Medications ?Medication ?Instructions ?Recorded ?Confirmed acetaminophen 500 mg capsule 500 mg PO Q6H PRN 09/21/24 05/18/25 cholecalciferol (vitamin D3) 125 50,000 unit PO QWEEK 09/21/24 05/18/25 mcg (5,000 unit) tablet divalproex 250 mg tablet,delayed 250 mg PO 1600 09/21/24 05/18/25 release (Depakote) ibuprofen 800 mg tablet 800 mg PO PRN 09/21/24 05/18/25 lorazepam 1 mg tablet (Ativan) 1 mg PO .bed 09/21/24 05/18/25 metoprolol tartrate 37.5 mg tablet 37.5 mg PO BID 09/21/24 05/18/25 peg 150-[id number]-hycdtehd 1 2 drp ophthalmic (eye) PRN 09/21/24 05/18/25 %-0.2 %-0.2 % eye drops (Artificial Tears ([id number])) polyethylene glycol 3350 17 gram 17 g PO DAILY PRN 09/21/24 05/18/25 oral powder packet risperidone 1 mg tablet (Risperdal) 1 mg PO BID 09/21/24 05/18/25 tamsulosin 0.4 mg capsule (Flomax) 0.4 mg PO HS 09/21/24 05/18/25 losartan 25 mg tablet 25 mg PO DAILY 10/01/24 05/18/25 pantoprazole 40 mg tablet,delayed 40 mg PO QAM 10/01/24 05/18/25 release thiamine HCl (vitamin B1) 100 mg 100 mg PO DAILY 10/01/24 05/18/25 tablet benztropine 1 mg tablet 1 mg PO DAILY 02/26/25 05/18/25 multivitamin with folic acid 400 1 tab PO DAILY 02/26/25 05/18/25 mcg tablet (Daily-Messi (with folic acid)) divalproex 500 mg tablet,delayed 500 mg PO BID 05/18/25 05/18/25 release lorazepam 0.5 mg tablet 0.5 mg PO 1600 05/18/25 05/18/25 Allergies Allergy/AdvReac Type Severity Reaction Status Date / Time No Known Allergies Allergy Verified 03/04/25 13:45 General Stated Complaint: Chest Pain TORREY: 3 Exam Narrative Exam Narrative: Gen: awake and alert, in no apparent distress. Appears well nourished. HEENT: PERRL Neck: Supple, full range of motion, no observable masses Lungs: No increased work of breathing, lung sounds clear and equal bilaterally without wheezes, rhonchi, or rales. CV: Heart with regular rate and rhythm, no murmurs auscultated. Strong and symmetrical radial pulses. Chest wall is not tender to palpation Abdomen: Soft, nondistended, non-tender to palpation. No rigidity, rebound tenderness, or guarding. MSK: No joint swelling, no redness. Full ROM without limitation, no external traumatic findings. Skin: No rashes or lesions to visualized skin. Normal color, warm, and dry. Neuro: Cranial nerves II-XII intact and symmetrical bilaterally. 5/5 strength in all muscle groups x4 extremities. No sensory deficits. Ambulates with slow gait. The patient does appear quite tremulous, no asterixis appreciated Course Vital Signs Vital signs: Vital Signs Temperature 36.7 C 05/18/25 11:04 Pulse 69 05/18/25 11:04 Respiratory Rate 18 05/18/25 11:04 Pulse Oximetry 99 05/18/25 11:04 Temperature 36.7 C 05/18/25 11:04 Pulse 69 05/18/25 11:04 Respiratory Rate 18 05/18/25 11:04 Pulse Oximetry 99 05/18/25 11:04 Medical Decision Making This is a 70-year-old male patient presenting for evaluation of chest pain and transient hypotension. My differential includes but is not limited to ACS including STEMI, NSTEMI, unstable angina, certainly considered arrhythmia, pericarditis/myocarditis, aortic pathology. Considered orthostasis, vasovagal syndrome, dehydration, metabolic derangement, kidney injury, liver disease. Considered hepatic encephalopathy and sequelae of his alcoholic liver disease. Considered pulmonary abnormalities including pneumonia, bronchitis, pleural effusion, pulmonary edema, reactive airway disease, pneumothorax. The patient is without tachycardia, hypoxia, or a pleuritic component to his pain to significantly increase my concern for pulmonary embolism. No GI symptoms or vomiting to suggest Boerhaave's, esophagitis, peptic ulcer disease, pancreatitis. Considered musculoskeletal pathologies including costochondritis, chest wall pain. I reviewed the patient's EKG, which shows normal sinus rhythm without evidence of ischemia, interval abnormality, or ectopy. There are no significant changes from priors. We will obtain workup to include CBC, CMP, magnesium, troponin, ammonia, ethyl alcohol, and will obtain a chest x-ray. I provided the patient with 4 baby aspirin for cardiac protection. - I independently interpreted the laboratory studies, which show no significant leukocytosis, anemia, or thrombocytopenia. The chemistry panel is without evidence of electrolyte abnormality, kidney dysfunction, or liver injury. BNP is very slightly elevated to 493, largely appearing to be at the patient's baseline. Ammonia is normal, alcohol negative. Initial troponin negative. - Presumptive bedside and the patient looks to me and states I am having a seizure. I note him to be tremulousness in his extremities especially when outstretched. He has not had a change in consciousness, and is not experiencing anything that appears to be tonic-clonic movement. He is not incontinent, and I do not note that this appears to represent generalized seizure activity. We were able to reaffirm the patient's experience, and he called and his shaking subsided. He did not appear to be experiencing rigors, and remains afebrile and nontachycardic. CT scan and x-ray reviewed by myself, showing no intracranial abnormalities nor evidence of cardiopulmonary pathology. The patient reports that his chest pain has improved, he is no longer shaking or expressing that he is having a seizure, and he was able to tolerate oral intake. At this time we have not identified a specific cause of the symptoms that the patient was endorsing today, though he has had a robust and reassuring workup. Report will be called to the [facility] where he resides, and the patient will be transported back to that facility by ambulance due to his history of altered mental status and the need for medical screener to be present. At this time, the patient has had a full medical evaluation and is safe for discharge to home. They are hemodynamically stable, ambulatory, and tolerating PO. They left our facility without incident. Yary Connolly MD [facility] All Active Problems (Updated 05/18/25 @ 13:22 by Yary Connolly MD) Chest pain of unknown etiology (Acute) Shakiness (Acute) Hypertensive heart disease without heart failure (Acute) Pain, unspecified (Acute) Constipation in male (Acute) Benign prostatic hyperplasia with lower urinary tract symptoms (Acute) GERD (gastroesophageal reflux disease) (Chronic) Umbilical hernia (Acute) Right upper quadrant pain (Acute) Medical History (Updated 05/18/25 @ 13:22 by Yary Connolly MD) Paroxysmal atrial fibrillation Chronic cough Wernicke's encephalopathy Alcoholic cirrhosis of liver without ascites History of ETOH abuse Social History Smoking/Tobacco Use Status: Never Smoking risk assessment performed?: Yes Alcohol Intake: former Drug use: Never Substance use type: does not use Housing: [facility] Do you feel safe at home: Yes Do you feel safe in your relationship?: Yes
[2025-05-18] MEDS: Aspirin 81 MG CHEW 324 MG CH (11:14)
[2025-05-18 11:35] LABS: Abs Immature Grans 0.01 10^3/uL (0.0-0.06); HCT 40.2 % (40.0-50.0); HGB 13.4 g/dL (13.5-17.5); Immature Grans % 0.2 %; MCH 30.3 pg (27.0-33.0); MCHC 33.3 % (32.0-36.0); MCV 91 fL (80-95); MPV 11.0 fL (8.0-11.0); Platelet Count 152 10^3/uL (130-400); RBC 4.42 10^6/uL (4.36-5.78); RDW 12.3 % (11.8-14.1); RDW-SD 41.2 fL; WBC 4.85 10^3/uL (4.4-10.8)
[2025-05-18 11:48] LABS: Ammonia 14 umol/L (11-32)
[2025-05-18] MEDS: Lactated Ringers 500 ML IV (11:57)
[2025-05-18 11:59] LABS: ALT 17 U/L (16-63); AST 11 U/L (15-37); Albumin 3.6 g/dL (3.4-5.0); Alkaline Phosphatase 95 U/L (46-116); Anion Gap 9.6 mmol/L (3-11); BUN 10 mg/dL (7-18); Bilirubin, Total 0.4 mg/dL (0.2-1.0); CO2 27.4 mmol/L (21.0-32.0); Calcium 8.9 mg/dL (8.5-10.1); Chloride 106 mmol/L (98-107); Estimated GFR 94.62 (mL/min/1.73m2); Glucose 115 mg/dL (74-106); Magnesium 1.7 mg/dL (1.8-2.4); NT-proBNP 493 pg/mL (<300); Potassium 3.9 mmol/L (3.5-5.1); Sodium 143 mmol/L (136-145); Total Protein 7.1 g/dL (6.4-8.2); Troponin I 5 ng/L (<or=76)
--- NOTE | 2025-05-18 12:00 | DI.CT_ITS ---
Exam(s) CT HEAD WO EXAM: CT HEAD WO CLINICAL HISTORY: Shaking, AMS. TECHNIQUE: Imaging Protocol: Axial computed tomography images with coronal and sagittal reformatted images were created and reviewed COMPARISON: No exams were available for comparison FINDINGS: There are no skull fractures. There is no fluid in the visualized paranasal sinuses. There is no evidence of intracranial hemorrhage, mass effect, or shift of midline structures. There are no extra-axial fluid collections. There is calcification both basal ganglia. Small calcifications are also evident in the right cerebellar hemisphere. There is moderate atrophy noted. Ventricular size is commensurate with the size of the overlying cortical sulci IMPRESSION: No acute intracranial findings on this noninfused CT scan of the brain. Moderate atrophy evident Preliminary virtual Radiology report was reviewed. RADIATION DOSE DELIVERED: 874.73mGy.cm Total DLP DATA REPOSITORY: All CT scans at this facility are submitted to the National Radiology Data Registry (NRDR) Dose Index Registry (DIR) with the [employer] (A[employer]). RADIATION OPTIMIZATION: All CT scans at this facility use at least one of these dose optimization techniques: automated exposure control; mA and/or kV adjustment per patient size (includes targeted exams where dose is matched to clinical indication); or iterative reconstruction.
--- NOTE | 2025-05-18 12:11 | DI.VRAD_ITS ---
PROCEDURE INFORMATION: Exam: XR Chest Exam date and time: 05/18/2025 11:47 AM Age: 70 years old Clinical indication: Other: Chest pain TECHNIQUE: Imaging protocol: Radiologic exam of the chest. Views: 2 views. COMPARISON: CR XR PORTABLE CHEST AP 03/03/2025 3:58 AM FINDINGS: Lungs: Unremarkable. No consolidation. Pleural spaces: Unremarkable. No pleural effusion. No pneumothorax. Heart/Mediastinum: Unremarkable. No cardiomegaly. Bones/joints: Mild degenerative disease of bilateral acromioclavicular joints. The thoracic spine demonstrates mild degenerative changes at multiple levels. IMPRESSION: No acute cardiopulmonary process. Dictated and Authenticated by: Guicho Lizama MD. Orderin [facility] Jason Pringle MD
[2025-05-18 12:36] LABS: Troponin I 5 ng/L (<or=76)
--- NOTE | 2025-05-18 12:54 | DI.VRAD_ITS ---
PROCEDURE INFORMATION: Exam: CT Head Without Contrast Exam date and time: 05/18/2025 12:20 PM Age: 70 years old Clinical indication: Other: Shaking, AMS TECHNIQUE: Imaging protocol: Computed tomography of the head without contrast. COMPARISON: No relevant prior studies available. FINDINGS: Brain: Mineralization of bilateral basal ganglia and right dentate nucleus, age-related. Age related diffuse parenchymal volume loss. There are bilateral periventricular white matter and centrum semiovale hypodensities, consistent with chronic ischemic small vessel disease. No recent infarct, intracranial bleed or mass effect. Cerebral ventricles: Ex vacuo dilatation of the ventricles. Paranasal sinuses: Visualized sinuses are unremarkable. No fluid levels. Mastoid air cells: Visualized mastoid air cells are well aerated. Bones: Unremarkable. No acute fracture. Soft tissues: Unremarkable. IMPRESSION: No large territorial infarct or intracranial bleed. Dictated and Authenticated by: Guicho Lizama MD. Orderin [facility] Jason Pringle MD
[2025-05-18 13:02] LABS: Glucose Negative (Negative)
== END 2025-05-18 14:03 | disposition home or self-care (01) ==
PROVIDERS: Emergency Provider Emergency Medicine; PCP Nurse Practitioner Gerontology
DX: R07.9 Chest pain, unspecified (principal); R25.1 Tremor, unspecified; Z86.79 Personal history of other diseases of the circulatory system
CPT/HCPCS: 99284 ×2; 36415; 80053; 93005; 96360; 96361; 70450; 71046; 80320; 81003; 82140; 83735; 83880; 84484; 85025; 93010

== ENCOUNTER 2025-06-13 09:12 | Emergency (ER) | payer MEDICARE, MEDICAID, SELFPAY ==
[2025-06-13] VITALS (15 sets, daily range): BP systolic 122–164; BP diastolic 76–114; PULSE 60–81; RESP 9–27; TEMP 36.4; O2SAT 97–99
--- NOTE | 2025-06-13 09:00 | RT.EKG_ITS ---
APPROVED REPORT Exam: Resting ECG Reason for Exam: chest pain x2 days Patient Location: E HR:67 bpm ECG Measurements Heart Rate 67 AXIS NJ 209 P 67 QRSd 79 QRS 46 QT 392 T 58 QTc 415 Conclusion Sinus rhythm...normal P axis, V-rate 60- 99
[2025-06-13 10:22] LABS: Abs Immature Grans 0.02 10^3/uL (0.0-0.06); HCT 38.5 % (40.0-50.0); HGB 13.2 g/dL (13.5-17.5); Immature Grans % 0.4 %; MCH 31.1 pg (27.0-33.0); MCHC 34.3 % (32.0-36.0); MCV 91 fL (80-95); MPV 11.0 fL (8.0-11.0); Platelet Count 145 10^3/uL (130-400); RBC 4.25 10^6/uL (4.36-5.78); RDW 12.1 % (11.8-14.1); RDW-SD 40.2 fL; WBC 5.54 10^3/uL (4.4-10.8)
[2025-06-13 10:30] LABS: INR 1.1 (0.9-1.1); PTT Activated 23.7 sec (20.6-30.2); Prothrombin Time 11.0 sec (9.1-11.1)
[2025-06-13 10:31] LABS: ALT 15 U/L (16-63); AST 10 U/L (15-37); Albumin 3.3 g/dL (3.4-5.0); Alkaline Phosphatase 81 U/L (46-116); Anion Gap 7.3 mmol/L (3-11); BUN 12 mg/dL (7-18); Bilirubin, Total 0.5 mg/dL (0.2-1.0); CO2 30.7 mmol/L (21.0-32.0); Calcium 8.9 mg/dL (8.5-10.1); Chloride 104 mmol/L (98-107); Estimated GFR 98.51 (mL/min/1.73m2); Glucose 79 mg/dL (74-106); Magnesium 1.8 mg/dL (1.8-2.4); Potassium 4.0 mmol/L (3.5-5.1); Sodium 142 mmol/L (136-145); Total Protein 6.8 g/dL (6.4-8.2); Troponin I 6 ng/L (<or=76)
[2025-06-13 10:43] LABS: D-Dimer 409 ng/mlFEU (<500)
[2025-06-13 11:38] LABS: Troponin I 6 ng/L (<or=76)
[2025-06-13 11:54] LABS: Lipase 33 U/L (<78)
--- NOTE | 2025-06-13 12:15 | DI.RAD_ITS ---
Exam(s) XR CHEST 2V PA LATERAL EXAM: XR CHEST 2V PA LATERAL CLINICAL HISTORY: chest pain. TECHNIQUE: 2D digital imaging was performed. COMPARISON: CR,XR XR CHEST 2V PA LATERAL from 05/18/2025 FINDINGS: 2 views: Heart size is normal. The mediastinum is not widened. Lungs are clear. No infiltrates nor pleural effusions. IMPRESSION: No acute pulmonary findings. DATA REPOSITORY: RADIATION DOSE DELIVERED:
--- NOTE | 2025-06-13 14:32 | W.ED.GENAD ---
Discharge Plan Disposition Patient Disposition: Group Home Facility(SNF) Condition: Stable Discharge Details Clinical Impression: Chest pain, Elevated blood pressure reading Primary Care Provider: Bailey Reyes ED Provider: Black Uriarte Home Meds and New Rx's Prescriptions: Continued benztropine 1 mg tablet 1 mg PO BID multivitamin with folic acid [Daily-Messi (with folic acid)] 400 mcg tablet 1 tab PO DAILY risperidone [Risperdal] 1 mg tablet 1 mg PO BID lorazepam [Ativan] 1 mg tablet 1 mg PO .bed divalproex [Depakote] 250 mg tablet,delayed release (DR/EC) 750 mg PO HS Rx Instructions: takes w/500mg tab for a total dose of 750mg Q1600 tamsulosin [Flomax] 0.4 mg capsule 0.4 mg PO HS metoprolol tartrate 37.5 mg tablet 12.5 mg PO BID ibuprofen 800 mg tablet 800 mg PO PRN Artificial Tears([id number]) 1-0.2-0.2 % drops 2 drp ophthalmic (eye) PRN acetaminophen 500 mg capsule 500 mg PO Q6H PRN polyethylene glycol 3350 17 gram powder in packet 17 g PO DAILY PRN pantoprazole 40 mg tablet,delayed release (DR/EC) 40 mg PO QAM losartan 25 mg tablet 25 mg PO DAILY thiamine HCl (vitamin B1) 100 mg tablet 100 mg PO DAILY divalproex 500 mg tablet,delayed release (DR/EC) 500 mg PO DAILY Discharge Instructions Instructions: Chest Pain, Adult ED Additional Instructions: Cardiac testing today was nondiagnostic. Chest x-ray was nondiagnostic. Your blood pressure was elevated today-initial blood pressure was 141/114 and subsequent blood pressure was 158/86. This is too high. Please be sure to take your medicine as prescribed and monitor blood pressure closely. Please follow-up with your primary care physician regarding elevated blood pressure as outpatient antihypertensive medication dosing may need to be adjusted. Please follow-up with your primary care physician. Return to the emergency department immediately for any worsening or new concerning symptoms. Referrals: Bailey Reyes NP [Primary Care Provider, Medicine] HPI General Mode of arrival: EMS. Date/Time Provider Initiated Documentation: 06/13/25 09:36. Limitations to Documentation: altered mental status. Information obtained by: patient and EMS. HPI Narrative: HISTORY OF PRESENT ILLNESS 70-year-old male with chest pain of unknown etiology and GERD, presenting with chest pain. Reports prolonged chest pain and episodes of dizziness. Currently experiencing chest discomfort without abdominal or back pain. [facility] at [facility]. History review of systems significantly limited secondary to poor historian. Related Data Home Medications ?Medication ?Instructions ?Recorded ?Confirmed acetaminophen 500 mg capsule 500 mg PO Q6H PRN 09/21/24 06/13/25 divalproex 250 mg tablet,delayed 750 mg PO HS 09/21/24 06/13/25 release (Depakote) ibuprofen 800 mg tablet 800 mg PO PRN 09/21/24 06/13/25 lorazepam 1 mg tablet (Ativan) 1 mg PO .bed 09/21/24 06/13/25 metoprolol tartrate 37.5 mg tablet 12.5 mg PO BID 09/21/24 06/13/25 peg [id number] 1 2 drp ophthalmic (eye) PRN 09/21/24 06/13/25 %-0.2 %-0.2 % eye drops (Artificial Tears ([id number])) polyethylene glycol 3350 17 gram 17 g PO DAILY PRN 09/21/24 06/13/25 oral powder packet risperidone 1 mg tablet (Risperdal) 1 mg PO BID 09/21/24 06/13/25 tamsulosin 0.4 mg capsule (Flomax) 0.4 mg PO HS 09/21/24 06/13/25 losartan 25 mg tablet 25 mg PO DAILY 10/01/24 06/13/25 pantoprazole 40 mg tablet,delayed 40 mg PO QAM 10/01/24 06/13/25 release thiamine HCl (vitamin B1) 100 mg 100 mg PO DAILY 10/01/24 06/13/25 tablet benztropine 1 mg tablet 1 mg PO BID 02/26/25 06/13/25 multivitamin with folic acid 400 1 tab PO DAILY 02/26/25 06/13/25 mcg tablet (Daily-Messi (with folic acid)) divalproex 500 mg tablet,delayed 500 mg PO DAILY 05/18/25 06/13/25 release Allergies Allergy/AdvReac Type Severity Reaction Status Date / Time No Known Allergies Allergy Verified 03/04/25 13:45 General Stated Complaint: Chest Pain TORREY: 3 Review of Systems Constitutional Constitutional: Denies fever(s) Cardiovascular Cardiovascular: Reports chest pain Exam Const General: cooperative and no acute distress HENMT Mouth: moist mucous membranes Eyes Conjunctivae: normal conjunctivae Sclera: normal sclerae Resp Auscultation: clear to auscultation bilaterally, no rales, no rhonchi and no wheezes Cardio Rate: regular rate and not tachycardic Rhythm: regular rhythm GI Palpation: soft, not firm, no guarding, no masses, not rigid and nontender Skin General skin exam: no rashes or lesions noted Neuro General: patient alert, patient awake and tone normal Extrem General: no edema Course Vital Signs Vital signs: Vital Signs Temperature 36.4 C L 06/13/25 09:12 Pulse 73 06/13/25 09:12 Respiratory Rate 18 06/13/25 09:12 Blood Pressure 141/114 H 06/13/25 09:12 Pulse Oximetry 99 06/13/25 09:12 Temperature 36.4 C L 06/13/25 09:12 Temperature Source Temporal Artery Scan 06/13/25 09:12 Pulse 60 06/13/25 13:16 Pulse 68 06/13/25 13:16 Respiratory Rate 16 06/13/25 13:16 Blood Pressure 158/86 H 06/13/25 13:16 Blood Pressure Mean 113 06/13/25 13:16 Pulse Oximetry 98 06/13/25 13:16 Oxygen Delivery Method Room Air 06/13/25 09:12 Oxygen Flow Rate 0 06/13/25 09:12 Pain Level 3 06/13/25 09:12 Lab/Test Results Lab/Test Results: Laboratory Tests Range/Units 06/13/25 06/13/25 06/13/25 09:56 10:56 12:58 WBC (4.4-10.8) 10^3/uL 5.54 RBC (4.36-5.78) 10^6/uL 4.25 L Hgb (13.5-17.5) g/dL 13.2 L Hct (40.0-50.0) % 38.5 L MCV (80-95) fL 91 MCH (27.0-33.0) pg 31.1 MCHC (32.0-36.0) % 34.3 RDW (11.8-14.1) % 12.1 Plt Count (130-400) 10^3/uL 145 MPV (8.0-11.0) fL 11.0 Immature Gran % % 0.4 Neutrophils % % 56.2 Lymphocytes % % 29.8 Monocytes % % 10.6 Eosinophils % % 2.5 Basophils % % 0.5 Nucleated RBC % (0.0-0.3) % 0.0 Absolute Neutrophils (1.2-6.7) 10^3/uL 3.11 Absolute Lymphocytes (1.2-3.4) 10^3/uL 1.65 Absolute Monocytes (0.1-0.8) 10^3/uL 0.59 Absolute Eosinophils (0.0-0.7) 10^3/uL 0.14 Absolute Basophils (0.0-0.2) 10^3/uL 0.03 PT (9.1-11.1) sec 11.0 INR (0.9-1.1) 1.1 APTT (20.6-30.2) sec 23.7 D-Dimer (<500) ng/mlFEU 409 Sodium (136-145) mmol/L 142 Potassium (3.5-5.1) mmol/L 4.0 Chloride (98-107) mmol/L 104 Carbon Dioxide (21.0-32.0) mmol/L 30.7 Anion Gap (3-11) mmol/L 7.3 BUN (7-18) mg/dL 12 Creatinine (0.70-1.30) mg/dL 0.7 Est GFR (CKD-EPI 2020) (mL/min/1.73m2) 98.51 Glucose (74-106) mg/dL 79 Calcium (8.5-10.1) mg/dL 8.9 Magnesium (1.8-2.4) mg/dL 1.8 Total Bilirubin (0.2-1.0) mg/dL 0.5 AST (15-37) U/L 10 L ALT (16-63) U/L 15 L Alkaline Phosphatase (46-116) U/L 81 Troponin I (<or=76) ng/L 6 6 Cancelled Total Protein (6.4-8.2) g/dL 6.8 Albumin (3.4-5.0) g/dL 3.3 L Lipase (<78) U/L 33 Medical Decision Making ASSESSMENT AND PLAN Initial Assessment: 70-year-old male with chest pain of unknown etiology and GERD, presenting with chest pain and dizziness. Patient mildly hypertensive otherwise hemodynamically stable. Patient saturating well in no respiratory distress. Differential Diagnosis: - ACS - Pulmonary embolism ED Course: - EKG: Sinus rhythm 67 bpm, no STEMI. Read by me. - Labs reviewed and initial troponin and second delta troponin negative. D-dimer negative. -Chest x-ray was reviewed and interpreted by radiology: Heart is normal size. The mediastinum is not widened. No acute pulmonary findings. - Patient reassessed and has remained stable. - Plan for discharge back to nursing facility with plan for outpatient follow-up. Final Assessment: 70-year-old male with multiple medical problems including history of psychosis, here with chest discomfort. No emergent medical condition identified on evaluation and workup today. Patient has remained stable here in the emergency department during diagnostic testing. Plan for discharge with outpatient follow-up. Clinical Impression: - Chest pain - Dizziness This document was written with the assistance of BRET Soto. The patient consented to its use. Lab Data Lab results reviewed: Yes I reviewed the patient's lab results. Labs: Laboratory Tests Range/Units 06/13/25 06/13/25 06/13/25 09:56 10:56 12:58 WBC (4.4-10.8) 10^3/uL 5.54 RBC (4.36-5.78) 10^6/uL 4.25 L Hgb (13.5-17.5) g/dL 13.2 L Hct (40.0-50.0) % 38.5 L MCV (80-95) fL 91 MCH (27.0-33.0) pg 31.1 MCHC (32.0-36.0) % 34.3 RDW (11.8-14.1) % 12.1 Plt Count (130-400) 10^3/uL 145 MPV (8.0-11.0) fL 11.0 Immature Gran % % 0.4 Neutrophils % % 56.2 Lymphocytes % % 29.8 Monocytes % % 10.6 Eosinophils % % 2.5 Basophils % % 0.5 Nucleated RBC % (0.0-0.3) % 0.0 Absolute Neutrophils (1.2-6.7) 10^3/uL 3.11 Absolute Lymphocytes (1.2-3.4) 10^3/uL 1.65 Absolute Monocytes (0.1-0.8) 10^3/uL 0.59 Absolute Eosinophils (0.0-0.7) 10^3/uL 0.14 Absolute Basophils (0.0-0.2) 10^3/uL 0.03 PT (9.1-11.1) sec 11.0 INR (0.9-1.1) 1.1 APTT (20.6-30.2) sec 23.7 D-Dimer (<500) ng/mlFEU 409 Sodium (136-145) mmol/L 142 Potassium (3.5-5.1) mmol/L 4.0 Chloride (98-107) mmol/L 104 Carbon Dioxide (21.0-32.0) mmol/L 30.7 Anion Gap (3-11) mmol/L 7.3 BUN (7-18) mg/dL 12 Creatinine (0.70-1.30) mg/dL 0.7 Est GFR (CKD-EPI 2020) (mL/min/1.73m2) 98.51 Glucose (74-106) mg/dL 79 Calcium (8.5-10.1) mg/dL 8.9 Magnesium (1.8-2.4) mg/dL 1.8 Total Bilirubin (0.2-1.0) mg/dL 0.5 AST (15-37) U/L 10 L ALT (16-63) U/L 15 L Alkaline Phosphatase (46-116) U/L 81 Troponin I (<or=76) ng/L 6 6 Cancelled Total Protein (6.4-8.2) g/dL 6.8 Albumin (3.4-5.0) g/dL 3.3 L Lipase (<78) U/L 33 PFSH All Active Problems (Updated 06/13/25 @ 14:29 by Black Uriarte MD) Elevated blood pressure reading (Acute) Chest pain (Acute) Chest pain of unknown etiology (Acute) Shakiness (Acute) Hypertensive heart disease without heart failure (Acute) Pain, unspecified (Acute) Constipation in male (Acute) Benign prostatic hyperplasia with lower urinary tract symptoms (Acute) GERD (gastroesophageal reflux disease) (Chronic) Umbilical hernia (Acute) Right upper quadrant pain (Acute) Medical History (Updated 06/13/25 @ 14:29 by Black Uriarte MD) Paroxysmal atrial fibrillation Chronic cough Wernicke's encephalopathy Alcoholic cirrhosis of liver without ascites History of ETOH abuse Social History Smoking/Tobacco Use Status: Never Smoking risk assessment performed?: Yes Alcohol Intake: former Drug use: Never Substance use type: does not use Housing: fpc Do you feel safe at home: Yes Do you feel safe in your relationship?: Yes
== END 2025-06-13 14:36 | disposition skilled nursing facility (03) ==
PROVIDERS: Emergency Provider Student in an Organized Health Care Education/Training Program; PCP Nurse Practitioner Gerontology
DX: R07.9 Chest pain, unspecified (principal); R42 Dizziness and giddiness; I10 Essential (primary) hypertension; I48.0 Paroxysmal atrial fibrillation; Z79.899 Other long term (current) drug therapy
CPT/HCPCS: 36415; 80053; 83690; 93005; 99285; 71046; 83735; 84484; 85025; 85379; 85610; 85730; 93010; 99284

== ENCOUNTER 2025-06-30 18:12 | Outpatient (REF) | payer MEDICARE, MEDICAID, SELFPAY ==
[2025-06-30 18:14] LABS: Abs Immature Grans 0.02 10^3/uL (0.0-0.06); HCT 37.8 % (40.0-50.0); HGB 12.6 g/dL (13.5-17.5); Immature Grans % 0.4 %; MCH 30.7 pg (27.0-33.0); MCHC 33.3 % (32.0-36.0); MCV 92 fL (80-95); MPV 11.7 fL (8.0-11.0); Platelet Count 163 10^3/uL (130-400); RBC 4.11 10^6/uL (4.36-5.78); RDW 12.4 % (11.8-14.1); RDW-SD 41.1 fL; WBC 5.63 10^3/uL (4.4-10.8)
[2025-06-30 18:34] LABS: ALT 12 U/L (16-63); AST 13 U/L (15-37); Albumin 3.6 g/dL (3.4-5.0); Alkaline Phosphatase 82 U/L (46-116); Anion Gap 8.6 mmol/L (3-11); BUN 11 mg/dL (7-18); Bilirubin, Total 0.5 mg/dL (0.2-1.0); CO2 29.4 mmol/L (21.0-32.0); Calcium 8.9 mg/dL (8.5-10.1); Chloride 105 mmol/L (98-107); Estimated GFR 98.51 (mL/min/1.73m2); Glucose 85 mg/dL (74-106); Potassium 4.2 mmol/L (3.5-5.1); Sodium 143 mmol/L (136-145); Total Protein 6.9 g/dL (6.4-8.2)
== END 2025-06-30 18:13 | disposition home or self-care (01) ==
LOC: LBN 18:12
PROVIDERS: PCP Nurse Practitioner Gerontology; Visit Provider Nurse Practitioner Gerontology
DX: D63.1 Anemia in chronic kidney disease (principal); E87.8 Other disorders of electrolyte and fluid balance, not elsewhere classified
CPT/HCPCS: 80053; 85025

== ENCOUNTER 2025-08-08 13:53 | Outpatient (REF) | payer MEDICARE, MEDICAID, SELFPAY ==
[2025-08-08 12:41] LABS: Abs Immature Grans 0.01 10^3/uL (0.0-0.06); HCT 32.8 % (40.0-50.0); HGB 11.2 g/dL (13.5-17.5); Immature Grans % 0.2 %; MCH 31.5 pg (27.0-33.0); MCHC 34.1 % (32.0-36.0); MCV 92 fL (80-95); MPV 11.4 fL (8.0-11.0); Platelet Count 175 10^3/uL (130-400); RBC 3.55 10^6/uL (4.36-5.78); RDW 12.3 % (11.8-14.1); RDW-SD 41.4 fL; WBC 4.91 10^3/uL (4.4-10.8)
[2025-08-08 13:04] LABS: ALT 11 U/L (16-63); AST 10 U/L (15-37); Albumin 3.1 g/dL (3.4-5.0); Alkaline Phosphatase 66 U/L (46-116); Anion Gap 4.9 mmol/L (3-11); BUN 16 mg/dL (7-18); Bilirubin, Total 0.5 mg/dL (0.2-1.0); CO2 32.1 mmol/L (21.0-32.0); Calcium 8.1 mg/dL (8.5-10.1); Chloride 110 mmol/L (98-107); Estimated GFR 91.31 (mL/min/1.73m2); Glucose 103 mg/dL (74-106); Magnesium 2.0 mg/dL (1.8-2.4); NT-proBNP 892 pg/mL (<300); Potassium 4.2 mmol/L (3.5-5.1); Sodium 147 mmol/L (136-145); TSH (W/Ref FT4) 3.04 uIU/mL (0.36-3.74); Total Protein 5.8 g/dL (6.4-8.2)
== END 2025-08-08 13:54 | disposition home or self-care (01) ==
LOC: LBN 13:53
PROVIDERS: PCP Nurse Practitioner Gerontology; Visit Provider Nurse Practitioner Gerontology
DX: R53.83 Other fatigue (principal); I50.22 Chronic systolic (congestive) heart failure; D63.1 Anemia in chronic kidney disease; E87.8 Other disorders of electrolyte and fluid balance, not elsewhere classified; E83.42 Hypomagnesemia
CPT/HCPCS: 80053; 83735; 83880; 84443; 85025

== ENCOUNTER 2025-08-25 21:04 | Outpatient (REF) | payer MEDICARE, MEDICAID, SELFPAY ==
[2025-08-25 18:48] LABS: Anion Gap 11.2 mmol/L (3-11); BUN 14 mg/dL (7-18); CO2 26.8 mmol/L (21.0-32.0); Calcium 8.9 mg/dL (8.5-10.1); Chloride 107 mmol/L (98-107); Estimated GFR 94.62 (mL/min/1.73m2); Glucose 103 mg/dL (74-106); Potassium 4.2 mmol/L (3.5-5.1); Sodium 145 mmol/L (136-145)
== END 2025-08-25 21:05 | disposition home or self-care (01) ==
LOC: LBN 21:04
PROVIDERS: PCP Nurse Practitioner Gerontology; Visit Provider Nurse Practitioner Gerontology
DX: E87.8 Other disorders of electrolyte and fluid balance, not elsewhere classified (principal); F31.2 Bipolar disorder, current episode manic severe with psychotic features
CPT/HCPCS: 80048; 80164